=== PATIENT | male | born 2005 | race Caucasian/White ===

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

== ENCOUNTER 2024-07-03 20:44 | Emergency (ER) | payer SELFPAY ==
[2024-07-03] MEDS: Ibuprofen 600 MG Tab PO ONE (21:21)
[2024-07-03] MEDS: Diphtheria,Pertussis(Acell),Tetanus Vaccine 0.5 ML Syringe IM ONE (21:21)
== END 2024-07-03 21:57 | disposition home or self-care (01) ==
LOC: MW.ED 20:44
DX: S62.306A Unspecified fracture of fifth metacarpal bone, right hand, initial encounter for closed fracture (principal); Z75.3 Unavailability and inaccessibility of health-care facilities; Z23 Encounter for immunization; Z87.891 Personal history of nicotine dependence; W22.8XXA Striking against or struck by other objects, initial encounter; Y93.89 Activity, other specified
CPT/HCPCS: 29125; 73130; 90471; 90715; 99283; A9270